=== PATIENT | female | born 1950 | race Caucasian/White ===

== ENCOUNTER 2018-07-05 15:49 | Emergency (ER) | payer OTHER ==
--- OUTSIDE RECORDS SUMMARY | 2018-07-05 15:52 | XMS REPORT ---
:1950 [facility] Address [address] [place] [address] [address] [place] [address] Care Team Providers Name Role Phone NOEL HUDSON Unavailable Unavailable GARRY PARADA Unavailable Unavailable Problems This patient has no known problems. Allergies, Adverse Reactions, Alerts This patient has no known allergies or adverse reactions. Medications This patient has no known medications. Results Test Description Test Time Test Comments Text Results Atomic Results Result Comments TISSUE EXAM 2018-03-05 17:28:00 Surgical Pathology Report Case: [id number] Authorizing Provider: Noel Hudson Collected: 02/27/2018 0722 MD Angel [facility] Received: 02/27/2018 0858 SERVICES Pathologist: Pippa Montez MD Specimen: Condyle,Left Knee LEFT KNEE, TOTAL KNEE REPLACEMENT: - DEGENERATIVE JOINT DISEASE, SEVERE - SYNOVIUM WITH REACTIVE CHANGES - NEGATIVE FOR MALIGNANCY Signing Pathologist Direct Phone Line: [phone] signed by Yoly Cox MD for Pippa Montez MD on 03/05/2018 at 5:28 [id number]; [id number] left kneeLeft knee condylesReceived fresh labeled "condyle, left knee" are multiple irregular garcia-white to yellow-basilio portions of soft and osseous tissue to include the tibial plateau and femoral condyles measuring 11.5 x 9.5 x 2.2 cm in aggregate. The articular surfaces are garcia-white to yellow-basilio and display focal areas of eburnation with obliteration of the demarcation between cortical and cancellous bone in these areas on cross sections. Section code: A1-A2, bone for decalcification; A3, soft tissue for decalcification. DB/pl PERFORMED BASIC METABOLIC PANEL 2018-02-28 05:10:00 Test Item Value Reference Range Comments SODIUM (BEAKER) (test 136 meq/L 136-145 sfux=993) POTASSIUM (BEAKER) (test 3.8 meq/L 3.5-5.1 eskh=614) CHLORIDE (BEAKER) (test 106 meq/L 98-107 rxvh=100) CO2 (BEAKER) (test fjkd=845) 24 meq/L 22-29 BLOOD UREA NITROGEN (BEAKER) 7 mg/dL 7-21 (test wnip=889) CREATININE (BEAKER) (test 0.61 mg/dL 0.57-1.25 zelq=697) GLUCOSE RANDOM (BEAKER) 98 mg/dL 70-105 (test umyb=449) CALCIUM (BEAKER) (test 9.0 mg/dL 8.4-10.2 acne=122) EGFR (BEAKER) (test 98 mL/min/1.73 sq m ESTIMATED GFR IS NOT bsnc=4993) ACCURATE CREATININE CLEARANCE IN PREDICTING GLOMERULAR FILTRATION RATE. ESTIMATED GFR IS NOT APPLICABLE FOR DIALYSIS PATIENTS. CBC W/PLT COUNT & AUTO [id number] 04:43:00 Test Item Value Reference Range Comments WHITE BLOOD CELL COUNT (BEAKER) (test rvoz=381) 6.3 K/ L 3.5-10.5 RED BLOOD CELL COUNT (BEAKER) (test fwvb=061) 4.12 M/ L 3.93-5.22 HEMOGLOBIN (BEAKER) (test appw=184) 12.7 GM/DL 11.2-15.7 HEMATOCRIT (BEAKER) (test mglc=351) 40.0 % 34.1-44.9 MEAN CORPUSCULAR VOLUME (BEAKER) (test wbko=454) 97.1 fL 79.4-94.8 MEAN CORPUSCULAR HEMOGLOBIN (BEAKER) (test 30.8 pg 25.6-32.2 gued=034) MEAN CORPUSCULAR HEMOGLOBIN CONC (BEAKER) (test 31.8 GM/DL 32.2-35.5 lrnq=401) RED CELL DISTRIBUTION WIDTH (BEAKER) (test 13.5 % 11.7-14.4 jaay=029) PLATELET COUNT (BEAKER) (test szjm=759) 228 K/CU MM 150-450 MEAN PLATELET VOLUME (BEAKER) (test jmyu=475) 10.0 fL 9.4-12.3 NUCLEATED RED BLOOD CELLS (BEAKER) (test 0 /100 WBC 0-0 woxf=304) NEUTROPHILS RELATIVE PERCENT (BEAKER) (test 70 % iwon=475) LYMPHOCYTES RELATIVE PERCENT (BEAKER) (test 17 % sejw=118) MONOCYTES RELATIVE PERCENT (BEAKER) (test 10 % ryoe=581) EOSINOPHILS RELATIVE PERCENT (BEAKER) (test 2 % zrag=954) BASOPHILS RELATIVE PERCENT (BEAKER) (test 0 % phpi=629) NEUTROPHILS ABSOLUTE COUNT (BEAKER) (test 4.45 K/ L 1.56-6.13 qqyn=419) LYMPHOCYTES ABSOLUTE COUNT (BEAKER) (test 1.07 K/ L 1.18-3.74 xtlg=957) MONOCYTES ABSOLUTE COUNT (BEAKER) (test 0.64 K/ L 0.24-0.36 gikr=965) EOSINOPHILS ABSOLUTE COUNT (BEAKER) (test 0.14 K/ L 0.04-0.36 npil=876) BASOPHILS ABSOLUTE COUNT (BEAKER) (test 0.02 K/ L 0.01-0.08 irzf=553) IMMATURE GRANULOCYTES-RELATIVE PERCENT (BEAKER) 0 % 0-1 (test ktpd=0895) RAD, KNEE, 1 OR 2 VIEWS, [id number] 10:05:00Reason for exam:->stat in pacu postopFINAL REPORT Two views left knee Discussion: There is a total knee replacement with joint space air. Normal alignment. No visible fracture. Signed: Ammon Lomeli VerifiedDate/Time: 02/27/2018 10:05:22 Reading Location: [facility] Radiology Reading Room TISSUE [id number] 17:17:00Surgical Pathology Report Case: [id number] Authorizing Provider: Garry Parada, Collected: 01/04/2017 Linette GONSALEZ [facility] Received: 2016 1159 SERVICES Pathologist: Arash Mckay MD Specimens: A) -Condyle,Right Knee B) - Explant A. BONE AND SOFT TISSUE, RIGHT KNEE, ARTHROPLASTY: -OSTEOARTHRITIS AND CHRONIC PROLIFERATIVE SYNOVITISB. HARDWARE, KNEE,REMOVAL: HARDWARE KNEECG/pl Signing Pathologist Direct Phone Line: [phone] signed by Arash Mckay MD on 01/09/2017 at 5:17 [id number] of prosthesisA. Right knee condyle; B. ExplantThe specimen is received in two containers both labeled with the patient's information.Part A labeled "right knee condyle" and consists of multiple fragments of basilio-pink knee bone and soft tissue measuring 7 x 6 x 2 cm in aggregate. Bone fragments have distinct osteophyte formation with focal areas of eburnation. Section code: A1 and A2, bone submitted for decalcification; A3, soft tissue and bone submitted for decalcification. Part B labeled "explant knee hardware" consists of two metal device hardware measuring 4.5 x 2.5 x 1 cm and 5 x 2 x 0.4 cm. One of the serial number is [id number]. No other writing is readable. The specimen is submitted for gross identification. CG/pl A. The sections show reduplication of the tidemark with eburnation and osteophyte formation. The synovial tissue reveals a mild proliferation of small blood vessels and subsynovial edema with chronic inflammation.B. Gross description onlyBASIC METABOLIC [id number] 05:06:00 Test Item Value Reference Range Comments SODIUM (BEAKER) (test 138 meq/L 136-145 miuc=845) POTASSIUM (BEAKER) (test 3.7 meq/L 3.5-5.1 bebx=292) CHLORIDE (BEAKER) (test 108 meq/L 98-107 jmch=981) CO2 (BEAKER) (test 23 meq/L 22-29 nmsd=650) BLOOD UREA NITROGEN 9 mg/dL 7-21 (BEAKER) (test jydl=243) CREATININE (BEAKER) (test 0.59 mg/dL 0.57-1.25 rnaj=128) GLUCOSE RANDOM (BEAKER) 132 mg/dL 70-105 (test yyar=277) CALCIUM (BEAKER) (test 8.6 mg/dL 8.4-10.2 vhhl=974) EGFR (BEAKER) (test 103 mL/min/1.73 sq m ESTIMATED GFR IS NOT pwzs=1080) ACCURATE CREATININE CLEARANCE IN PREDICTING GLOMERULAR FILTRATION RATE. ESTIMATED GFR IS NOT APPLICABLE FOR DIALYSIS PATIENTS. HEMOGLOBIN AND [id number] 04:59:00 Test Item Value Reference Range Comments HEMOGLOBIN (BEAKER) (test fids=556) 11.2 GM/DL 11.2-15.7 HEMATOCRIT (BEAKER) (test wvxn=670) 35.4 % 34.1-44.9 [id number] 09:08:00 Test Item Value Reference Range Comments HEMOGLOBIN (BEAKER) (test rcbm=989) 13.5 GM/DL 11.2-15.7 PLATELET [id number] 09:08:00 Test Item Value Reference Range Comments PLATELET COUNT (BEAKER) (test nbgt=553) 348 K/CU MM 150-450
--- OUTSIDE RECORDS SUMMARY | 2018-07-05 15:52 | XMS REPORT | Clinical Summary ---
:1950 Author Organization [facility] Address [address] [place] [address] Care Team Providers Name Role Phone Isaias Vance MD Primary Care Provider Allergies Active Allergy Reactions Severity Noted Date Comments Raloxifene Other (See Comments) 01/26/2016 Headaches, unsteady gait, dizziness Alendronate Other (See Comments) 01/26/2016 Flu-like symptoms Medications Medication Sig Dispensed Refills Start Date End Date Status RABEprazole (ACIPHEX) Take 20 mg by mouth 0 Active 20 mg EC tablet daily. ezetimibe-simvastatin Take 1 tablet by 0 Active (VYTORIN) 10-40 mg mouth nightly. per tablet linaclotide (LINZESS) Take 290 mcg by 0 Active 290 mcg Cap mouth daily. zolpidem (AMBIEN) 10 Take 5 mg by mouth 0 Active mg tablet every night as needed for Insomnia . CALCIUM ORAL Take by mouth daily 0 Active . cholecalciferol Take 1,000 Units by 0 Active (VITAMIN D3) 1,000 mouth daily. unit tablet MULTIVIT-MIN/FA/CALCI Take by mouth. 0 Active UM/VIT K1 (ONE-A-DAY WOMEN'S 50+ ORAL) DULOXETINE HCL Take 60 mg by mouth 0 Active (CYMBALTA ORAL) . denosumab (PROLIA) 60 Inject 60 mg 0 Active mg/mL Syrg subcutaneously every 6 (six) months . glucosamine-chondroit Take 1 tablet by 0 Active in 500-400 mg tablet mouth 3 (three) times daily. aspirin 325 MG EC Take 1 tablet (325 14 tablet 0 01/05/2017 tablet mg total) by mouth 8 daily. aspirin 325 MG EC Take 1 tablet (325 30 tablet 0 02/27/2018 tablet mg total) by mouth 8 daily for 30 days. meloxicam (MOBIC) 15 Take 1 tablet (15 30 tablet 0 03/03/2018 MG tablet mg total) by mouth 8 daily for 30 days. HYDROcodone-acetamino Take 1 tablet by 60 tablet 0 02/27/2018 phen (NORCO 10-325) mouth every 6 (six) 8 10-325 mg per tablet hours as needed for up to 15 days. Max Daily Amount: 4 tablets Active Problems Problem Noted Date Arthritis of left knee 02/27/2018 S/P knee replacement 02/27/2018 Mechanical complication of prosthetic knee implant, sequela 01/04/2017 Status post right knee replacement 01/04/2017 Rotator cuff tear, left 02/01/2016 Biceps tendinitis 02/01/2016 Encounters Date Type Specialty Care Team Description 03/01/2018 Telephone Anesthesiology Shelli Alvarez Follow-up SEGUNDO Lora 02/27/2018 Surgery Colette, MAKOPLASTY,KNEE Noel Ortiz Jr., MD 02/27/2018 Anesthesia Event Nirav Benavides MD 02/27/2018 - Hospital Encounter General Internal Colette, 02/28/2018 Medicine Noel Ortiz Jr., MD 02/27/2018 Travel 02/22/2018 Hospital Encounter Pre-Admission Testing Noel Alvarenga Jr., MD after 07/04/2017 Social History Tobacco Use Types Packs/Day Years Used Date Never Smoker Smokeless Tobacco: Never Used Alcohol Use Drinks/Week oz/Week Comments No Sex Assigned at Date Recorded Not on file Job Start Date Occupation Industry Not on file Not on file Not on file Travel History Travel Start Travel End No recent travel history available. Last Filed Vital Signs Vital Sign Reading Time Taken Blood Pressure 139/66 02/28/2018 2:42 PM CDT Pulse 92 02/28/2018 2:42 PM CDT Temperature 36.7 C (98 F) 02/28/2018 2:42 PM CDT Respiratory Rate 16 02/28/2018 2:42 PM CDT Oxygen Saturation 100% 02/28/2018 2:42 PM CDT Inhaled Oxygen Concentration - - Weight 68 kg (150 lb 0 oz) 02/27/2018 5:49 AM CDT Height 160 cm (5' 2.99") 02/27/2018 5:49 AM CDT Body Mass Index 26.58 02/27/2018 5:49 AM CDT Plan of Treatment Not on file Implants Implanted Type Area Steel Pourer Helper Device Shelf Model / Identifier Expiration Serial / Date Lot Hortencia Arnold Ld [id number] - [id number] [place]/Ar Left: BIOMET:ARTHROTE 03/12/2020 [id number] / Implanted: Qty: 1 on 02/01/2016 by Ga Mcdaniel MD throscopy Shoulder K / [id number] [place] Quattro Knotless 2.9mm Cm-9129 - [id number] [place]/Ar Left: [facility] CM-9129 / Implanted: Qty: 1 on 02/01/2016 by Ga Mcdaniel MD throscopy Shoulder / [place] Knotless 4.5mm Cm-9145 - [id number] [place]/Ar Left: [facility] MED CM-9145 / Implanted: Qty: 1 on 02/01/2016 by Ga Mcdaniel MD throscopy Shoulder / [id number] Cement Bone Surg Smplx P Full 6191-1-001 - [id number] Cement/Fi Right: Knee RAMEZ:RAMEZ 10/27/2018 6191-1-001 / Implanted: Qty: 1 on 01/04/2017 by Deneen Gastelum MD ller/[facility] [employer] / mannye [id number] Cement Bone Surg Smplx P Full 6191-1-001 - [id number] Cement/Fi Right: Knee RAMEZ:RAMEZ 05/30/2019 6191-1-001 / Implanted: Qty: 1 on 01/04/2017 by Deneen Gastelum MD ller/[facility] / mannye [id number] Cement Bone Smplx Hv W-Gentam 6195-1-001 - [id number] Cement/Fi Left: Knee RAMEZ:RAMEZ 11/28/2019 6195-1-001 / Implanted: Qty: 2 on 02/27/2018 by Noel Alvarenga Jr., MD ller/ [facility] / sive [id number] Acet Shell,Trident Psl Thompson Cluster 50mm - [id number] Joints Left: Hip Ramez 07/28/2018 542-11-50E / Implanted: Qty: 1 on 12/04/2013 by Deneen Gastelum MD Orthopaedics / [id number] Acet Insert,Trident X3 0deg 36mm Id 36e - [id number] Joints Left: Hip [place] 09/27/2018 623-00-36E / Implanted: Qty: 1 on 12/04/2013 by Deneen Gastelum MD Orthopaedics / [id number] Screw,Bone Canc 6.5x25mm - [id number] Joints Left: Hip [place] 07/28/2018 9389-7280-1 / Implanted: Qty: 1 on 12/04/2013 by Deneen Gastelum MD Orthopaedics / [id number] Screw,Bone Canc 6.5x25mm - [id number] Joints Left: Hip Ramez 03/29/2018 6480-8761-1 / Implanted: Qty: 1 on 12/04/2013 by Deneen Gastelum MD Orthopaedics / [id number] Accolade Stem Joints Left: Hip RAMEZ RICHY 05/30/2018 [id number] / Implanted: Qty: 1 on 12/04/2013 by Deneen Gastelum MD / [id number] Fem Head,Biolox Delta Ceramic Anatomic V40 Taper 36mm +5mm - [id number] Joints Left: Hip Ramez 10/27/2018 6570-0-236 / Implanted: Qty: 1 on 12/04/2013 by Deneen Gastelum MD Orthopaedics / [id number] Patella Tri Asymmetric [id number] 5551-G-320 - [id number] Joints Right: Knee RAMEZ:RAMEZ 04/07/2021 5551-G-320 / Implanted: Qty: 1 on 01/04/2017 by Deneen Gastelum MD ORTHOPAEDICS / [id number] Comp Femoral #4 R 5510-F-402 - [id number] Joints Right: Knee RAMEZ:RAMEZ 07/15/2021 5510-F-402 / Implanted: Qty: 1 on 01/04/2017 by Deneen Gastelum MD ORTHOPAEDICS / [id number] Baseplt Tri Ts 3 5521-B-300 - [id number] Joints Right: Knee RAMEZ:RAMEZ 09/12/2021 5521-B-300 / Implanted: Qty: 1 on 01/04/2017 by Deneen Gastelum MD ORTHOPAEDICS / [id number] Insrt Tib Bearing Cs #3 16mm 5531-G-316 - [id number] Joints Right: Knee RAMEZ:RAMEZ 07/27/2018 5531-G-316 / Implanted: Qty: 1 on 01/04/2017 by Deneen Gastelum MD ORTHOPAEDICS / [id number] Patella Tri Asymmetric [id number] 5551-G-320 - [id number] Joints Left: Knee RAMEZ:RAMEZ 12/23/2022 5551-G-320 / Implanted: Qty: 1 on 02/27/2018 by Noel Alvarenga Jr., MD ORTHOPAEDICS / [id number] Comp Fem Cr Claus No.3 L 5510-F-301 - [id number] Joints Left: Knee RAMEZ: RAMEZ 10/02/2022 5510-F-301 / Implanted: Qty: 1 on 02/27/2018 by Noel Alvarenga Jr., MD ORTHOPAEDICS / [id number] Baseplt Triathlon Ts Sz2 5521-B-200 - [id number] Joints Left: Knee RAMEZ: RAMEZ 05/30/2022 5521-B-200 / Implanted: Qty: 1 on 02/27/2018 by Noel Alvarenga Jr., MD ORTHOPAEDICS / [id number] Insrt Tib Tri Crx Sz2 11mm 5530-G-211 - [id number] Joints Left: Knee RAMEZ: RAMEZ 05/24/2022 5530-G-211 / Implanted: Qty: 1 on 02/27/2018 by Noel Alvarenga Jr., MD ORTHOPAEDICS / [id number] Healicoil Pk 5.35 Suture [place] With Three Ultrabraid #2 Sutures Left: THOMAS & NEPHEW 10/28/2017 [id number] / Implanted: Qty: 1 on 02/01/2016 by Ga Mcdaniel MD Shoulder / [id number] Healicoild Pk 5.5mm Suture [place] With Three Ultrabraid #2 Sutures Left: BIOMET 10/28/2017 [id number] / Implanted: Qty: 1 on 02/01/2016 by Ga Mcdaniel MD Shoulder / [id number] Snapshot Fixation System Mini Open Kit (Incl Implant) Left: BIOMET 12/01 [id number] / Implanted: Qty: 1 on 02/01/2016 by Ga Mcdaniel MD Shoulder / [id number] Procedures Procedure Name Priority Date/Time Associated Diagnosis Comments RHYTHM STRIP - SCAN 03/01/2018 11:51 AM CDT CBC W/PLT COUNT & Routine 02/28/2018 3:57 Results for this AUTO DIFFERENTIAL AM CDT procedure are in the results section. BASIC METABOLIC Routine 02/28/2018 3:57 Results for this PANEL (7) AM CDT procedure are in the results section. CBC W/PLT COUNT & Routine 02/28/2018 3:57 Results for this AUTO DIFFERENTIAL AM CDT procedure are in the results section. XR KNEE LEFT 1 OR 2 STAT 02/27/2018 9:44 Results for this VIEWS AM CDT procedure are in the results section. TISSUE EXAM AP Routine 02/27/2018 7:22 Results for this AM CDT procedure are in the results section. PROCEDURE W/ CALEB 02/27/2018 6:45 Osteoarthritis of ROBOT AM CDT left knee, unspecified osteoarthritis type Case Notes 2 HRS PER FAXNEED PRE CERT Special Needs (RAMEZ CALEB, SPINAL WITH PERIPHERAL NERVE BLOCK) MAKOPLASTY,KNEE 02/27/2018 6:45 AM CDT Osteoarthritis of left knee, unspecified osteoarthritis type Case Notes 2 HRS PER FAXNEED PRE CERT Special Needs (RAMEZ CALEB, SPINAL WITH PERIPHERAL NERVE BLOCK) WI AN PERINEURAL CATH - NO Routine 02/27/2018 6:32 AM CDT Results for this CHARGE procedure are in the results section. ANESTHESIA SPINAL BLOCK Routine 02/27/2018 6:29 AM CDT TRANSFUSION SERVICE REPORT 02/23/2018 5:54 PM CDT - SCAN TYPE AND SCREEN, AUTOMATED Routine 02/22/2018 11:13 AM CDT after 07/04/2017 Results RHYTHM STRIP - SCAN (03/01/2018 11:51 AM CDT) Narrative Performed At CBC with platelet count + automated diff (02/28/2018 3:57 AM CDT) WBC 6.3 3.5 - 10.5 K/L [facility] RBC 4.12 3.93 - 5.22 M/L [facility] Hemoglobin 12.7 11.2 - 15.7 GM/DL [facility] Hematocrit 40.0 34.1 - 44.9 % [facility] MCV 97.1 (H) 79.4 - 94.8 fL [facility] MCH 30.8 25.6 - 32.2 pg [facility] MCHC 31.8 (L) 32.2 - 35.5 GM/DL [facility] RDW 13.5 11.7 - 14.4 % [facility] Platelets 228 150 - 450 K/CU MM [facility] MPV 10.0 9.4 - 12.3 fL [facility] nRBC 0 0 - 0 /100 WBC [facility] % Neutros 70 % [facility] % Lymphs 17 % [facility] % Monos 10 % [facility] % Eos 2 % [facility] % Baso 0 % [facility] # Neutros 4.45 1.56 - 6.13 K/L [facility] # Lymphs 1.07 (L) 1.18 - 3.74 K/L [facility] # Monos 0.64 (H) 0.24 - 0.36 K/L [facility] # Eos 0.14 0.04 - 0.36 K/L [facility] # Baso 0.02 0.01 - 0.08 K/L [facility] Immature Granulocytes-Relative 0 0 - 1 % [facility] Specimen Blood - Arm, Left Performing Organization Address City/[facility] Phone Number [facility] [address] [place] [phone] CENTER Basic Metabolic Panel (02/28/2018 3:57 AM CDT) Sodium 136 136 - 145 meq/L [facility] Potassium 3.8 3.5 - 5.1 meq/L [facility] Chloride 106 98 - 107 meq/L [facility] CO2 24 22 - 29 meq/L [facility] BUN 7 7 - 21 mg/dL [facility] Creatinine 0.61 0.57 - 1.25 mg/dL [facility] Glucose 98 70 - 105 mg/dL [facility] Calcium 9.0 8.4 - 10.2 mg/dL [facility] EGFR 98Comment: ESTIMATED GFR IS mL/min/1.73 sq m [facility] NOT ACCURATE CREATININE [facility] CLEARANCE IN PREDICTING GLOMERULAR FILTRATION RATE. ESTIMATED GFR IS NOT APPLICABLE FOR DIALYSIS PATIENTS. Specimen Blood - Arm, Left Performing Organization Address [facility] Phone Number [address] [address] CENTER XR knee 1 or 2 views left (02/27/2018 9:44 AM CDT) Narrative Performed At FINAL REPORT [facility] Two views left knee Discussion: There is a total knee replacement with joint space air. Normal alignment. No visible fracture. Signed: Ammon Jenkins MD Report Verified Date/Time:02/27/2018 10:05:22 Reading Location: [facility] Radiology Reading Room Procedure Note Interface, External Ris In - 02/27/2018 10:18 AM CDT FINAL REPORT Two views left knee Discussion: There is a total knee replacement with joint space air. Normal alignment. No visible fracture. Signed: Ammon Jenkins MD Report Verified Date/Time: 02/27/2018 10:05:22 Reading Location: [facility] Radiology Reading Room Performing Organization Address City/State/Zipcode Phone Number [facility] Tissue Exam (02/27/2018 7:22 AM CDT) Case Report Surgical Pathology Report Case: [id number] [facility] Authorizing Provider:Noel Alvarenga Collected: 02/27/2018 0722 [facility] MD Angel Ordering Location: [facility] PERIOPERATIVE Received: 02/27/2018 0858 SERVICES Pathologist: Pippa Montez MD Specimen:Condyle,Left Knee DIAGNOSIS LEFT KNEE, TOTAL KNEE REPLACEMENT: [facility] - DEGENERATIVE JOINT DISEASE, SEVERE [facility] - SYNOVIUM WITH REACTIVE CHANGES - NEGATIVE FOR MALIGNANCY Signing Pathologist Direct Phone Line: [phone] CPT Code(s) 63041; 89508 [facility] CLINICAL HISTORY Osteoarthritis left knee [facility] SPECIMEN SOURCE Left knee condyles [facility] GROSS DESCRIPTION Received fresh labeled "condyle, left knee" are multiple irregular garcia-white to yellow-basilio portions of soft and osseous tissue to include the tibial plateau and femoral condyles measuring 11.5 x 9.5 x [facility] 2.2 cm in aggregate. The articular surfaces are garcia-white to yellow-basilio and display focal areas of eburnation with obliteration of the demarcation between cortical and cancellous bone in these areas on cross sections. [facility] Section code: A1-A2, bone for decalcification; A3, soft tissue for decalcification. DB/pl MICROSCOPIC DESCRIPTION PERFORMED [facility] Specimen Tissue - Condyle,Left Knee Performing Organization Address City/State/Zipcode Phone Number [facility] [address] [place] [address] CENTER ANESTHESIA PERIPHERAL BLOCK (02/27/2018 6:32 AM CDT) Narrative Performed At Jb Velazquez MD 02/27/20186:35 AM Peripheral Block Patient location during procedure: pre-procedure Start time: 02/27/2018 6:32 AM End time: 02/27/2018 6:34 AM Procedure Indication: procedure for pain, at surgeon's request and post-op pain management Preanesthetic Checklist Completed: patient identified, pre-op evaluation, timeout performed, IV checked, risks and benefits discussed, monitors and equipment checked, anesthesia consent given, prep site dry prior to draping and maximum sterile barriers were used: cap, mask, sterile gown, sterile gloves, and large sterile sheet Staffing Anesthesiologist: Jb Velazquez MD Performed: personally Peripheral Nerve Block Patient position: supine Prep: chlorhexidine gluconate and isopropyl alcohol Patient monitoring: EKG, HR, BP and SpO2 Laterality: left Block type: adductor canal Injection technique: catheter landmark technique, ultrasound guided and landmark technique - prescan was completed prior to procedure and needle tip was visualized throughout the entire procedure ultrasound image saved Block Dose: ropivicaine and catheter Infiltration strength: 0.5 % Dose: 25 mL Needle Needle type: Tuohy Needle gauge: 17 G Needle length: 100 mm Needle Localization:anatomical landmarks and US guided Catheter type: open end Catheter size: 19 Gno Catheter tunneled? yes Dressing: Occlusive dressing applied in sterile fashion and Dermabond applied at the catheter insertion site Additional Notes Patient tolerated well.No pain on injection or throughout procedure. Procedure Note Jb Velazquez MD - 02/27/2018 6:32 AM CDT Peripheral Block Patient location during procedure: pre-procedure Start time: 02/27/2018 6:32 AM End time: 02/27/2018 6:34 AM Procedure Indication: procedure for pain, at surgeon's request and post-op pain management Preanesthetic Checklist Completed: patient identified, pre-op evaluation, timeout performed, IV checked , risks and benefits discussed, monitors and equipment checked, anesthesia consent given, prep site dry prior to draping and maximum sterile barriers were used: cap, mask, sterile gown, sterile gloves, and large sterile sheet Staffing Anesthesiologist: Jb Velazquez MD Performed: personally Peripheral Nerve Block Patient position: supine Prep: chlorhexidine gluconate and isopropyl alcohol Patient monitoring: EKG, HR, BP and SpO2 Laterality: left Block type: adductor canal Injection technique: catheter landmark technique, ultrasound guided and landmark technique - prescan was completed prior to procedure and needle tip was visualized throughout the entire procedure ultrasound image saved Block Dose: ropivicaine and catheter Infiltration strength: 0.5 % Dose: 25 mL Needle Needle type: Tuohy Needle gauge: 17 G Needle length: 100 mm Needle Localization: anatomical landmarks and US guided Catheter type: open end Catheter size: 19 Gno Catheter tunneled? yes Dressing: Occlusive dressing applied in sterile fashion and Dermabond applied at the catheter insertion site Additional Notes Patient tolerated well. No pain on injection or throughout procedure. ANESTHESIA SPINAL BLOCK (02/27/2018 6:29 AM CDT) Narrative Performed At Jb Velazquez MD 02/27/20186:31 AM Spinal Block Patient location during procedure: pre-procedure Start time: 02/27/2018 6:25 AM End time: 02/27/2018 6:30 AM Procedure Indication: procedure for pain, at surgeon's request and post-op pain management Staffing Anesthesiologist: Jb Velazquez MD Performed: personally Preanesthetic Checklist Completed: patient identified, pre-op evaluation, timeout performed, IV checked, risks and benefits discussed, monitors and equipment checked, anesthesia consent given, prep site dry prior to draping and maximum sterile barriers were used: cap, mask, sterile gown, sterile gloves, and large sterile sheet Prep Prep: Betadine Procedures: sterile gloves, surgical mask and surgical hat Spinal Block Patient position: sitting Patient monitoring: EKG, HR, BP and SpO2 Approach: midlineNo pictures available Level:L3-4 Injection technique: single-shot Needle Needle type: pencil-tip Needle gauge: 25 G Epidural needle length (in): 90mm. Assessment Sensory level: T10 Events: cerebrospinal fluid Additional Notes Spinal risks and benefits discussed with pt. Agreed and consented. Preload lactated ringers x 500cc, sitting, betadine X3, hat mask, 25 gauge Silvestre needle, 1st attempt, no heme, no paresthesia, pt tolerated procedure well, T10 level Procedure Note Jb Velazquez MD - 02/27/2018 6:29 AM CDT Spinal Block Patient location during procedure: pre-procedure Start time: 02/27/2018 6:25 AM End time: 02/27/2018 6:30 AM Procedure Indication: procedure for pain, at surgeon's request and post-op pain management Staffing Anesthesiologist: Jb Velazquez MD Performed: personally Preanesthetic Checklist Completed: patient identified, pre-op evaluation, timeout performed, IV checked , risks and benefits discussed, monitors and equipment checked, anesthesia consent given, prep site dry prior to draping and maximum sterile barriers were used: cap, mask, sterile gown, sterile gloves, and large sterile sheet Prep Prep: Betadine Procedures: sterile gloves, surgical mask and surgical hat Spinal Block Patient position: sitting Patient monitoring: EKG, HR, BP and SpO2 Approach: midlineNo pictures available Level: L3-4 Injection technique: single-shot Needle Needle type: pencil-tip Needle gauge: 25 G Epidural needle length (in): 90mm. Assessment Sensory level: T10 Events: cerebrospinal fluid Additional Notes Spinal risks and benefits discussed with pt. Agreed and consented. Preload lactated ringers x 500cc, sitting, betadine X3, hat mask, 25 gauge Silvestre needle, 1st attempt, no heme, no paresthesia, pt tolerated procedure well, T10 level TRANSFUSION SERVICE REPORT - SCAN (02/23/2018 5:54 PM CDT) Narrative Performed At Type and screen, automated (02/22/2018 11:13 AM CDT) ABO/RH AUTOMATED (BEAKER) O POSITIVE [facility] Ab Scrn NEGATIVE [facility] Specimen Blood Performing Organization Address City/State/Zipcode Phone Number [facility] [address] [place] [address] after 07/04/2017 Insurance Payer Benefit Plan / Group Subscriber ID Type Phone Address MEDICARE MEDICARE A B xxxxxxxxxxx Medicare AETNA - MGD CARE AETNA HMO POS QPOS xxxxxxxxx HMO/POS MCR GENERIC MEDICARE xxxxxxxxx Medigap SUPPLEMENT/INDIVIDUAL SUPPLEMENT Advance Directives Patient has advance care planning documents, and code status on file. For more information, please contact:[place] [phone] [place], [place] [phone] Code Status Date Activated Date Inactivated Comments Full Code 02/27/2018 11:25 AM This code status was determined by: Patient Full Code 02/27/2018 5:00 AM 02/27/2018 11:25 AM This code status was determined by: Patient Full Code 01/04/2017 7:34 AM 01/05/2017 4:51 PM This code status was determined by: Patient Full Code 02/01/2016 11:06 AM 02/01/2016 8:43 PM This code status was determined by: Patient Full Code 12/04/2013 3:52 PM 12/07/2013 12:18 PM This code status was determined by: Patient
--- NOTE | 2018-07-05 17:25 | RAD REPORT ---
EXAM DESCRIPTION: CT - Head Brain Wo Cont - 07/05/2018 5:15 pm CLINICAL HISTORY: Headache, history of brain tumor removal COMPARISON: None. TECHNIQUE: Axial 5 mm thick images of the head were obtained without IV contrast. All CT scans are performed using dose optimization technique as appropriate and may include automated exposure control or mA/KV adjustment according to patient size. FINDINGS: No intracranial hemorrhage, mass, edema or shift of mid-line structures. No acute infarcti on changes seen. No abnormal extra-axial fluid collections. Ventricles are normal. Patient has a prom inent left-side perivascular space near the basal ganglia. This is a normal variant. Mild atrophy and chronic ischemic changes are present. Right frontal postsurgical changes are present. Mastoid air cells and visualized portions of the paranasal sinuses are clear. No acute bony findings. IMPRESSION: Negative non-contrast CT head examination for acute finding.
--- NOTE | 2018-07-05 18:10 | ER ---
Nurse's Notes [facility] Name: Sherine Leger Age: 68 yrs Sex: Female : 1950 Arrival Date: 07/05/2018 Time: 15:51 Bed 6 Private MD: Diagnosis: Headache;Strain of muscle, fascia and tendon at neck level Presentation: 07/05 15:56 Presenting complaint: Patient states: sinus congestion/pain, dizziness, left sided sv headache and left arm pain, nausea x 1.5 weeks. Transition of care: patient was not received from another setting of care. Onset of symptoms was June 2018. Care prior to arrival: None. 15:56 Method Of Arrival: Ambulatory sv 15:56 Acuity: GIA 3 sv 16:50 Risk Assessment: Do you want to hurt yourself or someone else? Patient reports no sg desire to harm self or others. Initial Sepsis Screen: Does the patient meet any 2 criteria? No. Patient's initial sepsis screen is negative. Does the patient have a suspected source of infection? No. Patient's initial sepsis screen is negative. Historical: - Allergies: 15:58 Codeine; sv - PMHx: 15:58 brain tumor; sv - PSHx: 15:58 Hysterectomy; clemente knee; left hip; left shoulder; brain surgery; sv - Immunization history:: Adult Immunizations up to date. - Social history:: Smoking status: Patient/guardian denies using tobacco. - Ebola Screening: : Patient negative for fever greater than or equal to 101.5 degrees Fahrenheit, and additional compatible Ebola Virus Disease symptoms Patient denies exposure to infectious person Patient denies travel to an Ebola-affected area in the 21 days before illness onset No symptoms or risks identified at this time. Screenin:50 Abuse screen: Denies threats or abuse. Denies injuries from another. Nutritional sg screening: No deficits noted. Tuberculosis screening: No symptoms or risk factors identified. Never had TB. Fall Risk None identified. Assessment: 16:50 General: Appears in no apparent distress. comfortable, well groomed, well developed, sg well nourished, Behavior is calm, cooperative, appropriate for age. Pain: Complains of pain in right arm Quality of pain is described as aching. Neuro: Level of Consciousness is awake, alert, obeys commands, Oriented to person, place, time, situation, Hepatology Physician are equal bilaterally Moves all extremities. Full function Gait is steady, Speech is normal, Facial symmetry appears normal, Reports dizziness. Cardiovascular: Capillary refill is brisk in bilateral fingers Patient's skin is warm and dry. Chest pain is denied. Respiratory: Airway is patent Respiratory effort is even, unlabored, Respiratory pattern is regular, symmetrical. GI: Abdomen is round non-distended, Bowel sounds present X 4 quads. Reports nausea. : No signs and/or symptoms were reported regarding the genitourinary system. EENT: No signs and/or symptoms were reported regarding the EENT system. Derm: Skin is pink, warm \T\ dry. Musculoskeletal: No signs and/or symptoms reported regarding the musculoskeletal system. Vital Signs: 15:58 BP 144 / 85; Pulse 67; Resp 20; Pulse Ox 99% ; Weight 68.04 kg; Height 5 ft. 3 in. sv (160.02 cm); Pain 7/10; 17:00 BP 138 / 72; Pulse 68; Resp 17; Pulse Ox 99% on R/A; Pain 4/10; sg 18:00 BP 142 / 70; Pulse 66; Resp 18; Temp 97.7; Pulse Ox 100% on R/A; Pain 4/10; sg 15:58 Body Mass Index 26.57 (68.04 kg, 160.02 cm) sv ED Course: 15:51 Patient arrived in ED. as 15:57 Triage completed. sv 15:58 Arm band placed on. sv 16:47 Pablo Reynaga NP is PHCP. pm1 16:47 Quan Phan MD is Attending Physician. pm1 16:52 Patient has correct armband on for positive identification. Bed in low position. Call sg light in reach. Side rails up X2. Pulse ox on. NIBP on. Warm blanket given. Head of bed elevated. 17:03 Derrick Banegas, SEGUNDO is Primary Nurse. sg 17:[address] via wheelchair. vr 17:14 CT completed. Patient tolerated procedure well. Patient moved back from CT. nj 17:15 CT Head Brain wo Cont In Process Unspecified. EDMS 18:20 No provider procedures requiring assistance completed. Patient did not have IV access sg during this emergency room visit. Administered Medications: No medications were administered Outcome: 18:09 Discharge ordered by . pm1 18:20 Discharged to home ambulatory, with family. sg 18:20 Condition: good 18:20 Discharge instructions given to patient, Instructed on discharge instructions, follow up and referral plans. safety practices, Demonstrated understanding of instructions, follow-up care. 18:28 Patient left the ED. aj1 Signatures: Dispatcher [employer] EDGriselda Garrido RN RN aj1 Tabitha Schmid RN RN sv Gay, Steven, RN RN sg Martinez, Amelia as Davis, Victoria vr Marinas, Patrick, NP DIVISION OPERATIONS MANAGER pm1 George Avelar
--- NOTE | 2018-07-05 18:10 | EDPHYS ---
Physician Documentation [facility] Name: Sherine Leger Age: 68 yrs Sex: Female : 1950 Arrival Date: 07/05/2018 Time: 15:51 Bed 6 Private MD: ED Physician Quan Phan HPI: 07/05 17:32 This 68 yrs old Female presents to ER via Ambulatory with complaints of Left pm1 Arm Pain, Headache, Sinus Congestion. 17:32 The patient complains of pain to the left side of head. The patient describes the pm1 headache as intermittent, spasming. Onset: The symptoms/episode began/occurred 1.5 week(s) ago. Associated signs and symptoms: Pertinent positives: sinus congestion, Pertinent negatives: dizziness, fever, nausea, rash, vomiting. Severity of symptoms: in the emergency department the pain has resolved. The symptoms are alleviated by nothing. the symptoms are aggravated by nothing. The patient has not experienced similar symptoms in the past. The patient has been recently seen at an urgent care, today, sinus congestion. Patient with sinus congestion and intermittent left sided headache with left neck spasming that lasts 3 seconds for the past 1.5 weeks. Neck spasming associated with left arm pain. Patient went to urgent care for evaluation of her sinus congestion and was referred to the ER due to headache and left arm pain. 17:32 Associated signs and symptoms: Pertinent negatives: Chest pain, shortness of breath. pm1 17:32 Patient attributes headache and neck spasming pain to sleeping on a recliner with her pm1 head in a elevated position due to the sinus congestion. Her neck was in a bent position when she went to sleep. Historical: - Allergies: 15:58 Codeine; sv - PMHx: 15:58 brain tumor; sv - PSHx: 15:58 Hysterectomy; clemente knee; left hip; left shoulder; brain surgery; sv - Immunization history:: Adult Immunizations up to date. - Social history:: Smoking status: Patient/guardian denies using tobacco. - Ebola Screening: : Patient negative for fever greater than or equal to 101.5 degrees Fahrenheit, and additional compatible Ebola Virus Disease symptoms Patient denies exposure to infectious person Patient denies travel to an Ebola-affected area in the 21 days before illness onset No symptoms or risks identified at this time. ROS: 17:32 Constitutional: Negative for fever, chills, and weight loss, Eyes: Negative for injury, pm1 pain, redness, and discharge, Neck: Negative for injury, pain, and swelling, Cardiovascular: Negative for chest pain, palpitations, and edema, Respiratory: Negative for shortness of breath, cough, wheezing, and pleuritic chest pain, Abdomen/GI: Negative for abdominal pain, nausea, vomiting, diarrhea, and constipation, Back: Negative for injury and pain, : Negative for injury, bleeding, discharge, and swelling, MS/Extremity: Negative for injury and deformity, Skin: Negative for injury, rash, and discoloration. 17:32 ENT: Positive for sinus congestion, sinus pain. 17:32 Neuro: Positive for headache, Negative for dizziness, numbness, tingling, weakness. Exam: 17:32 Constitutional: This is a well developed, well nourished patient who is awake, alert, pm1 and in no acute distress. Head/Face: Normocephalic, atraumatic. Eyes: Pupils equal round and reactive to light, extra-ocular motions intact. Lids and lashes normal. Conjunctiva and sclera are non-icteric and not injected. Cornea within normal limits. Periorbital areas with no swelling, redness, or edema. ENT: Nares patent. No nasal discharge, no septal abnormalities noted. Tympanic membranes are normal and external auditory canals are clear. Oropharynx with no redness, swelling, or masses, exudates, or evidence of obstruction, uvula midline. Mucous membranes moist. Neck: Trachea midline, no thyromegaly or masses palpated, and no cervical lymphadenopathy. Supple, full range of motion without nuchal rigidity, or vertebral point tenderness. No Meningismus. Chest/axilla: Normal chest wall appearance and motion. Nontender with no deformity. No lesions are appreciated. Cardiovascular: Regular rate and rhythm with a normal S1 and S2. No gallops, murmurs, or rubs. Normal PMI, no JVD. No pulse deficits. Respiratory: Lungs have equal breath sounds bilaterally, clear to auscultation and percussion. No rales, rhonchi or wheezes noted. No increased work of breathing, no retractions or nasal flaring. Abdomen/GI: Soft, non-tender, with normal bowel sounds. No distension or tympany. No guarding or rebound. No evidence of tenderness throughout. Back: No spinal tenderness. No costovertebral tenderness. Full range of motion. Skin: Warm, dry with normal turgor. Normal color with no rashes, no lesions, and no evidence of cellulitis. MS/ Extremity: Pulses equal, no cyanosis. Neurovascular intact. Full, normal range of motion. 17:32 Neuro: Orientation: is normal, Mentation: is normal, Cranial nerves: CN II- XII are normal as tested, Cerebellar function: normal finger to nose testing, heel to casillas testing is normal, Motor: moves all fours, strength is normal, strength is 5/5 in all extremities, Sensation: is normal, no obvious gross deficits, Gait: is steady, at a normal pace, without difficulty. Vital Signs: 15:58 BP 144 / 85; Pulse 67; Resp 20; Pulse Ox 99% ; Weight 68.04 kg; Height 5 ft. 3 in. sv (160.02 cm); Pain 7/10; 17:00 BP 138 / 72; Pulse 68; Resp 17; Pulse Ox 99% on R/A; Pain 4/10; sg 18:00 BP 142 / 70; Pulse 66; Resp 18; Temp 97.7; Pulse Ox 100% on R/A; Pain 4/10; sg 15:58 Body Mass Index 26.57 (68.04 kg, 160.02 cm) sv MDM: 17:05 Patient medically screened. pm1 17:56 Data reviewed: vital signs. Data interpreted: Pulse oximetry: on room air is 99 %. pm1 Interpretation: normal. Counseling: I had a detailed discussion with the patient and/or guardian regarding: the historical points, exam findings, and any diagnostic results supporting the discharge/admit diagnosis. 07/05 17:06 Order name: CT Head Brain wo Cont; Complete Time: 17:32 pm1 Administered Medications: No medications were administered Disposition: 07/05/18 18:09 Discharged to Home. Impression: Headache, Strain of muscle, fascia and tendon at neck level. - Condition is Stable. - Discharge Instructions: General Headache Without Cause, Muscle Strain. - Medication Reconciliation Form, Thank You Letter form. - Follow up: Emergency Department; When: As needed; Reason: Worsening of condition. Follow up: Private Physician; When: 2 - 3 days; Reason: Recheck today's complaints, Continuance of care, Re-evaluation by your physician. - Problem is new. - Symptoms have improved. Addendum: 07/08/2018 07:17 Co-signature as Attending Physician, Quan Phan MD I agree with the assessment and k dr plan of care. Signatures: Dispatcher [employer] EDMS Griselda Narvaez RN RN aj1 Tabitha Schmid RN RN Derrick Banegas RN RN sg Quan Phan MD MD [facility] Pablo Reynaga, ANODIC OPERATOR ANODIC OPERATOR pm1 Corrections: (The following items were deleted from the chart) 07/05 18:28 18:09 07/05/2018 18:09 Discharged to Home. Impression: Headache; Strain of muscle, aj1 fascia and tendon at neck level. Condition is Stable. Forms are Medication Reconciliation Form, Thank You Letter, Antibiotic Education, Prescription Opioid Use. Follow up: Emergency Department; When: As needed; Reason: Worsening of condition. Follow up: Private Physician; When: 2 - 3 days; Reason: Recheck today's complaints, Continuance of care, Re-evaluation by your physician. Problem is new. Symptoms have improved. pm1
== END 2018-07-05 18:28 | disposition home or self-care (01) ==
LOC: ER 15:49
DX: S16.1XXA Strain of muscle, fascia and tendon at neck level, initial encounter (principal); Z88.5 Allergy status to narcotic agent
CPT/HCPCS: 70450; 99284